=== PATIENT | female | born 1985 ===

== ENCOUNTER 2024-04-09 12:44 | Outpatient (CLI) | payer OTHER, SELFPAY ==
[2024-04-09 12:42] LABS: Abs Immature Grans 0.02 10^3/uL (0.0-0.06); Absolute Basophil Count 0.03 10^3/uL (0.0-0.2); Absolute Eosinophil Count 0.03 10^3/uL (0.0-0.7); Absolute Lymphocyte Count 1.25 10^3/uL (1.2-3.4); Absolute Monocyte Count 0.38 10^3/uL (0.1-0.8); Absolute Neutrophil Count 4.55 10^3/uL (1.2-6.7); Basophils % 0.5 %; Eosinophils % 0.5 %; HCT 40.9 % (36.0-46.0); HGB 13.8 g/dL (11.2-15.7); Immature Grans % 0.3 %; MCHC 33.7 % (32.0-36.0); MCV 86 fL (80-95); MPV 10.3 fL (8.0-11.0); Monocytes % 6.1 %; Neutrophils % 72.6 %; Platelet Count 230 10^3/uL (130-400); RBC 4.76 10^6/uL (3.93-5.22); RDW-SD 40.7 fL; WBC 6.26 10^3/uL (4.4-10.8)
[2024-04-09 13:05] LABS: HCG Qual (Urine) Negative
[2024-04-09 13:35] LABS: ALT 18 U/L (14-59); AST 12 U/L (15-37); Albumin 4.1 g/dL (3.4-5.0); Alkaline Phosphatase 78 U/L (46-116); Anion Gap 9.5 mmol/L (3-11); BUN 13 mg/dL (7-18); CO2 23.5 mmol/L (21.0-32.0); Calcium 9.2 mg/dL (8.5-10.1); Chloride 108 mmol/L (98-107); Estimated GFR 73.04 (mL/min/1.73m2); Glucose 104 mg/dL (74-106); Potassium 3.7 mmol/L (3.5-5.1); Sodium 141 mmol/L (136-145); TSH 1.83 uIU/mL (0.36-3.74); Total Protein 7.5 g/dL (6.4-8.2)
[2024-04-10 09:37] LABS: HBs Antibody, Quant 14.1 mIU/mL (See Note); Hepatitis B Surface Ab Positive (See Note)
== END 2024-04-09 12:45 | disposition home or self-care (01) ==
PROVIDERS: Visit Provider Internal Medicine Medical Oncology
DX: C50.112 Malignant neoplasm of central portion of left female breast (principal); Z17.0 Estrogen receptor positive status [ER+]
CPT/HCPCS: 36415; 80053; 86706; 81025; 84443; 85025

== ENCOUNTER 2024-05-14 02:23 | Outpatient (RCR) | payer OTHER, SELFPAY ==
[2024-05-14] MEDS: Normal Saline Flush 10 ML SYR IVP (08:46)
[2024-05-14 09:04] LABS: Abs Immature Grans 0.08 10^3/uL (0.0-0.06); Absolute Basophil Count 0.04 10^3/uL (0.0-0.2); Absolute Eosinophil Count 0.02 10^3/uL (0.0-0.7); Absolute Lymphocyte Count 0.79 10^3/uL (1.2-3.4); Absolute Monocyte Count 0.52 10^3/uL (0.1-0.8); Basophils % 0.6 %; Eosinophils % 0.3 %; HCT 35.7 % (36.0-46.0); HGB 11.7 g/dL (11.2-15.7); Immature Grans % 1.2 %; Lymphocytes % 11.9 %; MCH 29.1 pg (27.0-33.0); MCHC 32.8 % (32.0-36.0); MCV 89 fL (80-95); MPV 10.8 fL (8.0-11.0); Monocytes % 7.8 %; Neutrophils % 78.2 %; Platelet Count 174 10^3/uL (130-400); RBC 4.02 10^6/uL (3.93-5.22); RDW 15.6 % (11.7-14.6); RDW-SD 48.6 fL; WBC 6.65 10^3/uL (4.4-10.8)
[2024-05-14 09:40] LABS: ALT 20 U/L (14-59); AST 14 U/L (15-37); Albumin 3.8 g/dL (3.4-5.0); Alkaline Phosphatase 97 U/L (46-116); Anion Gap 9.9 mmol/L (3-11); BUN 12 mg/dL (7-18); Bilirubin, Total 0.3 mg/dL (0.2-1.0); CO2 25.1 mmol/L (21.0-32.0); CREATININE 0.8 mg/dL (0.55-1.02); Calcium 8.9 mg/dL (8.5-10.1); Chloride 107 mmol/L (98-107); Estimated GFR 95.46 (mL/min/1.73m2); Glucose 98 mg/dL (74-106); Sodium 142 mmol/L (136-145); Total Protein 6.8 g/dL (6.4-8.2)
== END 2024-05-21 23:59 | disposition home or self-care (01) ==
LOC: INF 02:23
PROVIDERS: Physician Assistant Medical; Visit Provider Internal Medicine Medical Oncology
DX: Z79.899 Other long term (current) drug therapy (principal); C50.112 Malignant neoplasm of central portion of left female breast; Z17.0 Estrogen receptor positive status [ER+]
CPT/HCPCS: 36591; 80053; 85025

== ENCOUNTER 2024-06-11 02:17 | Outpatient (RCR) | payer OTHER, SELFPAY ==
[2024-05-28] MEDS: Normal Saline Flush 10 ML SYR IVP (10:50)
[2024-05-28 10:51] LABS: Abs Immature Grans 0.28 10^3/uL (0.0-0.06); Absolute Basophil Count 0.06 10^3/uL (0.0-0.2); Absolute Eosinophil Count 0.03 10^3/uL (0.0-0.7); Absolute Lymphocyte Count 1.05 10^3/uL (1.2-3.4); Absolute Monocyte Count 0.69 10^3/uL (0.1-0.8); Basophils % 0.6 %; Eosinophils % 0.3 %; HCT 35.5 % (36.0-46.0); HGB 11.5 g/dL (11.2-15.7); Immature Grans % 2.8 %; Lymphocytes % 10.5 %; MCH 29.5 pg (27.0-33.0); MCHC 32.4 % (32.0-36.0); MCV 91 fL (80-95); MPV 10.2 fL (8.0-11.0); Monocytes % 6.9 %; Neutrophils % 78.9 %; Platelet Count 177 10^3/uL (130-400); RDW 17.2 % (11.7-14.6); RDW-SD 55.8 fL; WBC 10.01 10^3/uL (4.4-10.8)
[2024-05-28 11:22] LABS: ALT 18 U/L (14-59); AST 11 U/L (15-37); Albumin 3.8 g/dL (3.4-5.0); Alkaline Phosphatase 105 U/L (46-116); Anion Gap 10.1 mmol/L (3-11); BUN 13 mg/dL (7-18); Bilirubin, Total 0.2 mg/dL (0.2-1.0); CO2 24.9 mmol/L (21.0-32.0); CREATININE 0.8 mg/dL (0.55-1.02); Calcium 8.5 mg/dL (8.5-10.1); Chloride 107 mmol/L (98-107); Estimated GFR 95.46 (mL/min/1.73m2); Glucose 92 mg/dL (74-106); Sodium 142 mmol/L (136-145)
[2024-06-11] MEDS: Normal Saline Flush 10 ML SYR IVP (09:11)
[2024-06-11 09:27] LABS: HCT 31.9 % (36.0-46.0); HGB 10.9 g/dL (11.2-15.7); MCH 30.9 pg (27.0-33.0); MCHC 34.2 % (32.0-36.0); MCV 90 fL (80-95); MPV 9.9 fL (8.0-11.0); Platelet Count 222 10^3/uL (130-400); RBC 3.53 10^6/uL (3.93-5.22); RDW 18.1 % (11.7-14.6); WBC 9.47 10^3/uL (4.4-10.8)
[2024-06-11 09:48] LABS: Absolute Lymphocyte Count 1.14 10^3/uL (1.2-3.4); Absolute Monocyte Count 0.47 10^3/uL (0.1-0.8); Absolute Neutrophil Count 7.86 10^3/uL (1.2-6.7); Bands % 1 %; Diff Comment Manual Differential; RBC Morphology Normal
[2024-06-11 09:52] LABS: ALT 17 U/L (14-59); AST 13 U/L (15-37); Albumin 3.9 g/dL (3.4-5.0); Alkaline Phosphatase 103 U/L (46-116); Anion Gap 6.6 mmol/L (3-11); BUN 11 mg/dL (7-18); Bilirubin, Total 0.3 mg/dL (0.2-1.0); CO2 26.4 mmol/L (21.0-32.0); CREATININE 0.8 mg/dL (0.55-1.02); Chloride 107 mmol/L (98-107); Estimated GFR 95.46 (mL/min/1.73m2); Glucose 85 mg/dL (74-106); Potassium 4.1 mmol/L (3.5-5.1); Sodium 140 mmol/L (136-145); Total Protein 6.9 g/dL (6.4-8.2)
== END 2024-06-20 23:59 | disposition home or self-care (01) ==
LOC: INF 02:17
PROVIDERS: Physician Assistant Medical; Visit Provider Internal Medicine Medical Oncology
DX: C50.112 Malignant neoplasm of central portion of left female breast (principal); Z17.0 Estrogen receptor positive status [ER+]; Z79.899 Other long term (current) drug therapy; Z45.2 Encounter for adjustment and management of vascular access device
CPT/HCPCS: 36591; 80053; 85025

== ENCOUNTER 2024-07-09 02:58 | Outpatient (RCR) | payer OTHER, SELFPAY ==
[2024-06-25] MEDS: Normal Saline Flush 10 ML SYR IVP (08:29)
[2024-06-25 08:31] LABS: Abs Immature Grans 0.02 10^3/uL (0.0-0.06); Absolute Basophil Count 0.04 10^3/uL (0.0-0.2); Absolute Eosinophil Count 0.04 10^3/uL (0.0-0.7); Absolute Lymphocyte Count 0.65 10^3/uL (1.2-3.4); Absolute Monocyte Count 0.49 10^3/uL (0.1-0.8); Absolute Neutrophil Count 2.56 10^3/uL (1.2-6.7); Basophils % 1.1 %; Eosinophils % 1.1 %; HCT 32.7 % (36.0-46.0); HGB 10.7 g/dL (11.2-15.7); Immature Grans % 0.5 %; Lymphocytes % 17.1 %; MCH 30.2 pg (27.0-33.0); MCHC 32.7 % (32.0-36.0); MCV 92 fL (80-95); MPV 9.6 fL (8.0-11.0); Monocytes % 12.9 %; Neutrophils % 67.3 %; Platelet Count 321 10^3/uL (130-400); RBC 3.54 10^6/uL (3.93-5.22); RDW 16.6 % (11.7-14.6); RDW-SD 56.8 fL
[2024-06-25 08:55] LABS: ALT 34 U/L (14-59); AST 19 U/L (15-37); Albumin 3.9 g/dL (3.4-5.0); Alkaline Phosphatase 75 U/L (46-116); Anion Gap 7.7 mmol/L (3-11); BUN 10 mg/dL (7-18); Bilirubin, Total 0.3 mg/dL (0.2-1.0); CO2 25.3 mmol/L (21.0-32.0); CREATININE 0.9 mg/dL (0.55-1.02); Chloride 107 mmol/L (98-107); Estimated GFR 82.88 (mL/min/1.73m2); Glucose 100 mg/dL (74-106); Potassium 4.2 mmol/L (3.5-5.1); Sodium 140 mmol/L (136-145); Total Protein 6.8 g/dL (6.4-8.2)
[2024-07-09] MEDS: Normal Saline Flush 10 ML SYR IVP (08:47)
[2024-07-09 09:22] LABS: ALT 45 U/L (14-59); AST 22 U/L (15-37); Albumin 4.1 g/dL (3.4-5.0); Alkaline Phosphatase 79 U/L (46-116); Anion Gap 10.6 mmol/L (3-11); BUN 11 mg/dL (7-18); Bilirubin, Total 0.5 mg/dL (0.2-1.0); CO2 25.4 mmol/L (21.0-32.0); CREATININE 0.9 mg/dL (0.55-1.02); Calcium 9.4 mg/dL (8.5-10.1); Chloride 106 mmol/L (98-107); Estimated GFR 82.88 (mL/min/1.73m2); Glucose 95 mg/dL (74-106); Sodium 142 mmol/L (136-145); Total Protein 7.4 g/dL (6.4-8.2)
[2024-07-09 09:46] LABS: Abs Immature Grans 0.02 10^3/uL (0.0-0.06); Absolute Basophil Count 0.04 10^3/uL (0.0-0.2); Absolute Eosinophil Count 0.11 10^3/uL (0.0-0.7); Absolute Lymphocyte Count 0.71 10^3/uL (1.2-3.4); Absolute Monocyte Count 0.52 10^3/uL (0.1-0.8); Absolute Neutrophil Count 3.15 10^3/uL (1.2-6.7); Basophils % 0.9 %; Eosinophils % 2.4 %; HCT 34.1 % (36.0-46.0); HGB 11.3 g/dL (11.2-15.7); Immature Grans % 0.4 %; Lymphocytes % 15.6 %; MCH 30.1 pg (27.0-33.0); MCHC 33.1 % (32.0-36.0); MCV 91 fL (80-95); MPV 10.4 fL (8.0-11.0); Monocytes % 11.4 %; Neutrophils % 69.3 %; Platelet Count 273 10^3/uL (130-400); RBC 3.75 10^6/uL (3.93-5.22); RDW 15.2 % (11.7-14.6); RDW-SD 50.7 fL; WBC 4.55 10^3/uL (4.4-10.8)
== END 2024-07-21 23:59 | disposition home or self-care (01) ==
LOC: INF 02:58
PROVIDERS: Physician Assistant Medical; Visit Provider Internal Medicine Medical Oncology
DX: C50.112 Malignant neoplasm of central portion of left female breast (principal); Z17.0 Estrogen receptor positive status [ER+]; Z79.899 Other long term (current) drug therapy; Z45.2 Encounter for adjustment and management of vascular access device
CPT/HCPCS: 36591; 80053; 85025

== ENCOUNTER 2024-07-24 01:40 | Outpatient (RCR) | payer OTHER, SELFPAY ==
[2024-07-24] MEDS: Normal Saline Flush 10 ML SYR IVP (07:48)
[2024-07-24 08:03] LABS: Abs Immature Grans 0.03 10^3/uL (0.0-0.06); Absolute Basophil Count 0.03 10^3/uL (0.0-0.2); Absolute Eosinophil Count 0.09 10^3/uL (0.0-0.7); Absolute Lymphocyte Count 0.61 10^3/uL (1.2-3.4); Absolute Monocyte Count 0.42 10^3/uL (0.1-0.8); Basophils % 0.8 %; Eosinophils % 2.4 %; HCT 35.2 % (36.0-46.0); HGB 11.5 g/dL (11.2-15.7); Immature Grans % 0.8 %; Lymphocytes % 16.6 %; MCHC 32.7 % (32.0-36.0); MCV 92 fL (80-95); MPV 10.2 fL (8.0-11.0); Monocytes % 11.4 %; Platelet Count 235 10^3/uL (130-400); RBC 3.83 10^6/uL (3.93-5.22); RDW 13.9 % (11.7-14.6); WBC 3.68 10^3/uL (4.4-10.8)
[2024-07-24 08:30] LABS: ALT 56 U/L (14-59); AST 25 U/L (15-37); Albumin 3.9 g/dL (3.4-5.0); Alkaline Phosphatase 79 U/L (46-116); Anion Gap 11.2 mmol/L (3-11); BUN 13 mg/dL (7-18); Bilirubin, Total 0.3 mg/dL (0.2-1.0); CO2 23.8 mmol/L (21.0-32.0); CREATININE 0.9 mg/dL (0.55-1.02); Calcium 8.8 mg/dL (8.5-10.1); Chloride 106 mmol/L (98-107); Estimated GFR 82.88 (mL/min/1.73m2); Glucose 105 mg/dL (74-106); Potassium 3.9 mmol/L (3.5-5.1); Sodium 141 mmol/L (136-145); Total Protein 7.2 g/dL (6.4-8.2)
== END 2024-08-20 23:59 | disposition home or self-care (01) ==
LOC: INF 01:40
PROVIDERS: Visit Provider Internal Medicine Medical Oncology
DX: C50.112 Malignant neoplasm of central portion of left female breast (principal); Z17.0 Estrogen receptor positive status [ER+]; Z79.899 Other long term (current) drug therapy
CPT/HCPCS: 36591; 80053; 85025